=== PATIENT | female | born 1965 | race Hispanic/Latino ===

== ENCOUNTER 2017-05-28 20:26 | Emergency (ER) | payer SELFPAY ==
[2017-05-28 21:16] LABS: APPEARANCE,URINE SL CLOUDY (CLEAR); BILIRUBIN,URINE NEGATIVE (NEGATIVE); COLOR,URINE YELLOW (YELLOW); GLUCOSE, URINE (UA) NEGATIVE (NEGATIVE); KETONES,URINE NEGATIVE (NEGATIVE); LEUKOCYTE ESTERASE ,URINE NEGATIVE (NEGATIVE); NITRATE,URINE NEGATIVE (NEGATIVE); OCCULT BLOOD,URINE NEGATIVE (NEGATIVE); PH,URINE 5.5 (5.0-8.0); PROTEIN,URINE NEGATIVE (NEGATIVE); UROBILINOGEN,URINE 0.2 mg/dL (0.2-1.0)
[2017-05-28 21:22] LABS: BASOPHILS % (AUTO) 0.7 % (0.0-5.0); EOSINOPHILS % (AUTO) 2.2 % (0.0-8.0); HEMATOCRIT 38.5 % (36-48); LYMPHOCYTES % (AUTO) 25.2 % (21.0-51.0); MEAN CORPUSCULAR HEMOGLOBIN 29.4 pg (27.0-33.0); MEAN CORPUSCULAR HGB CONC 33.7 g/dL (32.0-36.0); MEAN CORPUSCULAR VOLUME 87.2 fL (79-99); MONOCYTES % (AUTO) 6.4 % (3.0-13.0); NEUTROPHILS % (AUTO) 65.5 % (40.0-77.0); PLATELET COUNT (AUTO) 269 K/uL (130-400); RED BLOOD CELL COUNT(AUTO) 4.41 MIL/uL (4.00-5.50)
[2017-05-28 21:29] LABS: HCG,QUAL RESULT NEGATIVE (NEGATIVE)
[2017-05-28 21:29] LABS: CREATININE 1.1 mg/dL (0.5-1.5); POTASSIUM 3.6 mmol/L (3.5-5.1)
[2017-05-28 21:32] LABS: BACTERIA,URINE Few /HPF (None Seen); RBC,URINE 0-1 /HPF (0-1); WBC,URINE 0-1 /HPF (0-1)
[2017-05-28 21:33] LABS: ALBUMIN 3.7 g/dL (3.5-5.0); BILIRUBIN,TOTAL 0.2 mg/dL (0.2-1.0); TOTAL PROTEIN, SERUM 7.9 g/dL (6.0-8.3)
[2017-05-28 21:57] LABS: MUCUS,URINE Rare LPF (None Seen); SQUAMOUS EPITHELIAL CELL,UR Few /HPF (0-2)
[2017-05-28] MEDS ORDERED: LIDOCAINE HCL 2% VISCOUS 15 ML UDCUP ONE (22:11)
[2017-05-28] MEDS ORDERED: MAGNESIUM HYDROXIDE 30 ML/UDCUP ONE (22:11)
[2017-05-28] MEDS ORDERED: ONDANSETRON ODT 4 MG TAB ONE (22:38)
[2017-05-28] MEDS ORDERED: MORPHINE SULFATE 4 MG/1ML SYG ONE (22:42)
[2017-05-28] MEDS ORDERED: FAMOTIDINE 20MG TAB 20 MG TAB ONE (23:20)
[2017-05-29] MEDS ORDERED: KETOROLAC TROMETHAMINE 30MG/ML ONE (00:36)
[2017-05-29] MEDS ORDERED: FENTANYL CITRATE PF 50 MCG/1 ML 2ML VIAL ONE (01:10)
[2017-05-29] MEDS ORDERED: GABA600T PO (16:55)
[2017-05-29] MEDS ORDERED: ZOLP10TA2 PO (16:55)
== END 2017-05-29 01:52 | disposition home or self-care (01) ==
LOC: EDH 20:26
DX: R10.13 Epigastric pain (principal); R10.11 Right upper quadrant pain
CPT/HCPCS: 36415; 80053; 81001; 81025; 82150; 83690; 85025; 93005; 96374; 96375; 99285; J1885; J2270; J3010

== ENCOUNTER 2017-05-29 07:44 | Inpatient (IN) | payer SELFPAY ==
[~2017-05-29] VITALS: Ht 154.9 cm; Wt 79.4 kg
[2017-05-29] MEDS ORDERED: HYOSCYAMINE SULFATE 0.125 MG TAB.SUBL SL ONE (08:45)
[2017-05-29 09:58] LABS: BASOPHILS % (AUTO) 0.3 % (0.0-5.0); HEMATOCRIT 41.3 % (36-48); LYMPHOCYTES % (AUTO) 7.3 % (21.0-51.0); MEAN CORPUSCULAR HEMOGLOBIN 28.9 pg (27.0-33.0); MEAN CORPUSCULAR HGB CONC 33.9 g/dL (32.0-36.0); MEAN CORPUSCULAR VOLUME 85.3 fL (79-99); MONOCYTES % (AUTO) 3.8 % (3.0-13.0); NEUTROPHILS % (AUTO) 88.6 % (40.0-77.0); PLATELET COUNT (AUTO) 281 K/uL (130-400); RED BLOOD CELL COUNT(AUTO) 4.84 MIL/uL (4.00-5.50); RED CELL DISTRIBUTION WIDTH 12.9 % (11.0-15.5)
[2017-05-29] MEDS ORDERED: KETOROLAC TROMETHAMINE 30MG/ML ONE (09:58)
[2017-05-29] MEDS ORDERED: ONDANSETRON HCL MDV 20ML 2 MG/ML VIAL ONE ×2 (09:58→14:00)
[2017-05-29 10:20] LABS: CREATININE 0.9 mg/dL (0.5-1.5); POTASSIUM 4.1 mmol/L (3.5-5.1)
[2017-05-29 10:24] LABS: ALBUMIN 4.3 g/dL (3.5-5.0); BILIRUBIN,TOTAL 0.4 mg/dL (0.2-1.0); TOTAL PROTEIN, SERUM 9.2 g/dL (6.0-8.3)
[2017-05-29] MEDS ORDERED: SODIUM CHLORIDE 0.9% 1000ML 1,000 ML IV ONE (13:48)
[2017-05-29] MEDS ORDERED: MORPHINE SULFATE 4 MG/1ML SYG ONE ×2 (14:02→17:50)
[2017-05-29 14:10] VITALS: BP 155/93
[2017-05-29] MEDS: SODIUM CHLORIDE 0.9% 1000ML 1,000 ML IV SCH (16:26)
[2017-05-29] MEDS ORDERED: MORPHINE SULFATE 2 MG/ML 1ML SYG IV PRN (16:30)
[2017-05-29] MEDS ORDERED: HYDRALAZINE HCL 20 MG/ML VIAL IV PRN (16:30)
[2017-05-29] MEDS ORDERED: ACETAMINOPHEN 325 MG TAB PO PRN (16:30)
[2017-05-29] MEDS ORDERED: ZOLP10TA2 PO (16:55)
[2017-05-29] MEDS ORDERED: GABA600T PO (16:55)
[2017-05-29] MEDS ORDERED: ONDANSETRON HCL MDV 20ML 2 MG/ML VIAL IVP PRN (17:00)
[2017-05-29] MEDS: ZOSYN 3.375GM+NS 50ML 50 ML IV SCH (17:53)
[2017-05-29 20:00] VITALS: BP 152/86
[2017-05-29] MEDS: FAMOTIDINE/PF 20 MG/2 ML VIAL IV SCH (21:32)
[2017-05-29] MEDS: MORPHINE SULFATE 4 MG/1ML SYG IV PRN (22:09)
[2017-05-29 23:29] VITALS: BP 136/77
[2017-05-30] VITALS (21 sets, daily range): BP systolic 100–140; BP diastolic 57–85
[2017-05-30] MEDS: ZOSYN 3.375GM+NS 50ML 50 ML IV SCH ×3 (03:05→17:12)
[2017-05-30] MEDS: SODIUM CHLORIDE 0.9% 1000ML 1,000 ML IV SCH ×3 (03:05→22:27)
[2017-05-30] MEDS: MORPHINE SULFATE 4 MG/1ML SYG IV PRN ×4 (03:26→20:56)
[2017-05-30 05:52] LABS: BASOPHILS % (AUTO) 0.6 % (0.0-5.0); MEAN CORPUSCULAR HEMOGLOBIN 28.9 pg (27.0-33.0); MEAN CORPUSCULAR HGB CONC 33.5 g/dL (32.0-36.0); MEAN CORPUSCULAR VOLUME 86.2 fL (79-99); MONOCYTES % (AUTO) 7.5 % (3.0-13.0); NEUTROPHILS % (AUTO) 77.9 % (40.0-77.0); PLATELET COUNT (AUTO) 267 K/uL (130-400); RED BLOOD CELL COUNT(AUTO) 4.41 MIL/uL (4.00-5.50); RED CELL DISTRIBUTION WIDTH 12.9 % (11.0-15.5); WHITE BLOOD COUNT (AUTO) 11.4 K/uL (4.8-10.8)
[2017-05-30 06:10] LABS: ALBUMIN 3.2 g/dL (3.5-5.0); BILIRUBIN,TOTAL 0.4 mg/dL (0.2-1.0); CREATININE 0.9 mg/dL (0.5-1.5); POTASSIUM 4.2 mmol/L (3.5-5.1); TOTAL PROTEIN, SERUM 7.3 g/dL (6.0-8.3)
[2017-05-30] MEDS ORDERED: LACTATED RINGERS 1000ML 1,000 ML IV ONE (07:35)
[2017-05-30] MEDS ORDERED: BUPIVACAINE/PF 0.5% 30ML VIAL ONE (07:53)
[2017-05-30] MEDS ORDERED: LIDOCAINE HCL 1% 20 ML VIAL ONE (07:53)
[2017-05-30] MEDS ORDERED: LIDOCAINE PF 2% 5ML ABBOJECT ONE (08:05)
[2017-05-30] MEDS ORDERED: GLYCOPYRROLATE 0.2 MG/ML 5 ML VIAL ONE (08:05)
[2017-05-30] MEDS ORDERED: PROPOFOL 10 MG/ML 20ML VIAL IV ONE (08:05)
[2017-05-30] MEDS ORDERED: DEXAMETHASONE SOD PHOSPHATE 10MG/ML 1ML VIAL ONE (08:05)
[2017-05-30] MEDS ORDERED: MIDAZOLAM HCL 1 MG/ML 2ML VIAL ONE (08:05)
[2017-05-30] MEDS ORDERED: FENTANYL CITRATE PF 50 MCG/1 ML 2ML VIAL ONE ×2 (08:21→09:17)
[2017-05-30] MEDS: FAMOTIDINE/PF 20 MG/2 ML VIAL IV SCH ×2 (09:00→19:46)
[2017-05-30] MEDS ORDERED: MEPERIDINE-PF 25 MG/ML SYG ONE ×2 (09:46→09:59)
[2017-05-31] VITALS: BP 114/68
[2017-05-31] MEDS: ZOSYN 3.375GM+NS 50ML 50 ML IV SCH ×2 (02:11→08:55)
[2017-05-31] MEDS: MORPHINE SULFATE 4 MG/1ML SYG IV PRN ×3 (02:12→12:13)
[2017-05-31 04:30] VITALS: BP 100/3
[2017-05-31 07:00] VITALS: BP 107/70
[2017-05-31] MEDS: FAMOTIDINE/PF 20 MG/2 ML VIAL IV SCH (08:55)
[2017-05-31] MEDS: SODIUM CHLORIDE 0.9% 1000ML 1,000 ML IV SCH (08:55)
[2017-05-31 11:00] VITALS: BP 129/70
== END 2017-05-31 17:10 | disposition home or self-care (01) | DRG 418 ==
LOC: EDH 07:44 → EDHIP 07:45 → OBSVTOIN 07:45 → 3DH 16:17
PROVIDERS: ADMIT Internal Medicine Nephrology; ATTEND Internal Medicine Nephrology
PROC: 0FT44ZZ Resection of Gallbladder, Percutaneous Endoscopic Approach (ICD-10-PCS; principal; 2017-05-30 08:00)
DX: K80.00 Calculus of gallbladder with acute cholecystitis without obstruction (principal); R18.8 Other ascites; K82.8 Other specified diseases of gallbladder; E11.9 Type 2 diabetes mellitus without complications; D72.829 Elevated white blood cell count, unspecified; Z88.8 Allergy status to other drugs, medicaments and biological substances
CPT/HCPCS: 36415; 76705; 80053; 81025; 82150; 83690; 85025; 88304; J1100; J1885; J2001; J2175; J2250; J2270; J2543; J2704; J3010; J3490; J7030; J7120